=== PATIENT | male | born 1985 | race Caucasian/White ===

== ENCOUNTER 2023-10-11 14:49 | Emergency (ER) | payer SELFPAY ==
[~2023-10-11] VITALS: Ht 167.6 cm; Wt 78.9 kg
[2023-10-11 15:04] VITALS: O2SAT 97
[2023-10-11] MEDS ORDERED: IBUP-2029 MT (17:47)
[2023-10-11 18:46] VITALS: BP 138/68; PULSE 70; RESP 20; TEMP 98
== END 2023-10-11 18:45 | disposition home or self-care (01) ==
LOC: ER 15:56
DX: S61.011A Laceration without foreign body of right thumb without damage to nail, initial encounter (principal); X58.XXXA Exposure to other specified factors, initial encounter; Y93.89 Activity, other specified; Y92.89 Other specified places as the place of occurrence of the external cause; Y99.8 Other external cause status
CPT/HCPCS: 99282